=== PATIENT | female | born 1995 | race American Indian/Alaskan Native ===

== ENCOUNTER 2019-07-18 11:49 | Emergency (ER) | payer MEDICAID ==
[2019-07-18 12:17] LABS: Eosinophils % (Auto) 0.9 % (0.0-4.3); Monocytes # (Auto) 0.3 K/mm3 (0.0-0.8); Monocytes % (Auto) 5.2 % (0.0-7.3)
[2019-07-18 12:27] LABS: Hematocrit 41.8 % (30.3-42.9); Hemoglobin 13.6 gm/dl (10.1-14.3); Mean Corpuscular Volume 70 fl (79-97); Red Blood Count 5.94 M/mm3 (3.65-5.03)
[2019-07-18 12:28] LABS: Lymphocytes % (Auto) 28.1 % (13.4-35.0); Mean Corpuscular HGB Conc 32 % (30-34); Red Cell Distribution Width 17.6 % (13.2-15.2)
[2019-07-18 12:31] LABS: Basophils % (Auto) 0.3 % (0.0-1.8); Lymphocytes # (Auto) 1.3 K/mm3 (1.2-5.4)
[2019-07-18 12:42] LABS: Alanine Aminotransferase 8 units/L (7-56); Albumin 4.3 g/dL (3.9-5); BUN/Creatinine Ratio 11; Blood Urea Nitrogen 10 mg/dL (7-17); Calcium 9.2 mg/dL (8.4-10.2); Hemolysis Index 3
--- NOTE | 2019-07-18 13:05 | Emergency Department Report ---
<BERNY DOMINGUEZ - Last Filed: 07/18/19 19:54> ED Abdominal Pain HPI - General Chief Complaint: Abdominal Pain Stated Complaint: ABD PAIN Time Seen by Provider: 07/18/19 13:02 - Related Data Previous Rx's Medication Instructions Recorded Last Taken Type Acetaminophen [Non-Aspirin Extra 500 mg PO Q6HR PRN #30 tablet 07/18/19 Unknown Rx Strength] Ibuprofen [Motrin] 600 mg PO Q8H PRN #30 tablet 07/18/19 Unknown Rx Sulfamethoxazole/Trimethoprim 1 each PO BID 10 Days #20 tablet 07/18/19 Unknown Rx [Bactrim DS TAB] Allergies Allergy/AdvReac Type Severity Reaction Status Date / Time No Known Allergies Allergy Verified 07/18/19 11:58 ED Past Medical Hx - Medications Home Medications: Home Medications Medication Instructions Recorded Confirmed Last Taken Type Acetaminophen [Non-Aspirin Extra 500 mg PO Q6HR PRN #30 tablet 07/18/19 Unknown Rx Strength] Ibuprofen [Motrin] 600 mg PO Q8H PRN #30 tablet 07/18/19 Unknown Rx Sulfamethoxazole/Trimethoprim 1 each PO BID 10 Days #20 tablet 07/18/19 Unknown Rx [Bactrim DS TAB] ED Course - Reevaluation(s) Reevaluation #2: 07/18/19 19:55 The patient is reassessed by myself. The patient is not in any acute distress at this time. Her abdomen is soft and benign, with no rebound, guarding or peritoneal signs. During her abdominal examination, the patient smiles, laughs and giggles. The patient does not have any umbilical or lower abdominal induration at this time. Urinalysis is reviewed and appreciated. The patient does not endorse any irritative or obstructive urinary symptoms to myself. Counseled patient we would discharge with supportive medications, she may follow up as an outpatient primary care doctor. The patient verbalizes understanding. ED Medical Decision Making - Lab Data Result diagrams: 07/18/19 12:04 07/18/19 12:04 Vital Signs 07/18/19 07/18/19 07/18/19 12:01 12:04 13:05 Temperature 98 F Pulse Rate 69 72 Respiratory 16 16 18 Rate Blood Pressure 128/81 114/72 [Left] O2 Sat by Pulse 100 99 Oximetry 07/18/19 07/18/19 07/18/19 14:30 15:34 18:30 Temperature Pulse Rate 69 75 Respiratory 18 18 Rate Blood Pressure 113/67 110/64 102/60 [Left] O2 Sat by Pulse 99 Oximetry Labs 07/18/19 07/18/19 07/18/19 12:04 12:04 12:04 WBC 4.8 RBC 5.94 H Hgb 13.6 Hct 41.8 MCV 70 L MCH 23 L MCHC 32 RDW 17.6 H Plt Count 114 L Lymph % (Auto) 28.1 Camp % (Auto) 5.2 Eos % (Auto) 0.9 Baso % (Auto) 0.3 Lymph # 1.3 Camp # 0.3 Eos # 0.0 Baso # 0.0 Seg Neutrophils % 65.5 Seg Neutrophils # 3.1 Sodium 142 Potassium 4.0 Chloride 103.9 Carbon Dioxide 26 Anion Gap 16 BUN 10 Creatinine 0.9 Estimated GFR > 60 BUN/Creatinine Ratio 11 Glucose 94 Calcium 9.2 Total Bilirubin 0.50 AST 12 ALT 8 Alkaline Phosphatase 52 Total Protein 7.6 Albumin 4.3 Albumin/Globulin Ratio 1.3 HCG, Qual Negative Urine Color Urine Turbidity Urine pH Ur Specific [place] Urine Protein Urine Glucose (UA) Urine Ketones Urine Blood Urine Nitrite Urine Bilirubin Urine Urobilinogen Ur Leukocyte Esterase Urine WBC (Auto) Urine RBC (Auto) U Epithel Cells (Auto) Urine Mucus 07/18/19 13:03 WBC RBC Hgb Hct MCV MCH MCHC RDW Plt Count Lymph % (Auto) Camp % (Auto) Eos % (Auto) Baso % (Auto) Lymph # [place] # Eos # Baso # Seg Neutrophils % Seg Neutrophils # Sodium Potassium Chloride Carbon Dioxide Anion Gap BUN Creatinine Estimated GFR BUN/Creatinine Ratio Glucose Calcium Total Bilirubin AST ALT Alkaline Phosphatase Total Protein Albumin Albumin/Globulin Ratio HCG, Qual Urine Color Yellow Urine Turbidity Slightly-cloudy Urine pH 7.0 Ur Specific [place] 1.019 Urine Protein <15 mg/dl Urine Glucose (UA) Neg Urine Ketones Neg Urine Blood Neg Urine Nitrite Neg Urine Bilirubin Neg Urine Urobilinogen < 2.0 Ur Leukocyte Esterase Tr Urine WBC (Auto) 14.0 H Urine RBC (Auto) 3.0 U Epithel Cells (Auto) 7.0 Urine Mucus Few - Radiology Data Radiology results: report reviewed, image reviewed Patient: WILEY PAULSON MR#: [id number] : 1995 Acct:[id number] Age/Sex: 24 / F ADM Date: 07/18/19 Loc: ED Attending Dr: Ordering Physician: CELESTINE NUNEZ III, MD Date of Service: 07/18/19 Procedure(s): CT abdomen pelvis wo con Accession Number(s): [id number] cc: GINA NUNEZ III, MD . CT of the abdomen and pelvis without contrast INDICATION: Intermittent abdominal pain x1 year COMPARISON: None FINDINGS: Lung bases are clear. The liver, spleen, pancreas, adrenal glands and kidneys show no definite abnormalities except for very small 1 mm stone in the upper pole the left kidney which is nonobstructing. No definite gallbladder or biliary tree abnormality. No fluid or adenopathy in the upper abdomen. CT of the pelvis shows normal appendix. No uterine or adnexal masses. No pelvic fluid or adenopathy. No diverticulosis or diverticulitis. No hernia or bowel obstruction. IMPRESSION: Negative study. Automated exposure control was utilized to diminish radiation dose. Signer Name: Iftikhar Beaver MD Signed: 07/18/2019 6:35 PM Workstation Name: [email or web address] ED Disposition Clinical Impression: Abdominal pain Qualifiers: Abdominal location: periumbilical Qualified Code(s): R10.33 - Periumbilical pain UTI (urinary tract infection) Qualifiers: Urinary tract infection type: acute cystitis Hematuria presence: with hematuria Qualified Code(s): N30.01 - Acute cystitis with hematuria Disposition: - TO HOME OR SELFCARE Is pt being admited?: No Does the pt Need Aspirin: No Condition: Stable Instructions: Urinary Tract Infection in Women (ED), Abdominal Pain (ED) Additional Instructions: Patient to follow-up with primary care in 2-3 days. Patient to return to ER if condition worsens. Patient to take Tylenol when necessary pain. Patient to rest. Patient increase water. Patient eat regularly. Patient take meds as directed.. Prescriptions: Sulfamethoxazole/Trimethoprim [Bactrim DS TAB] 1 each PO BID 10 Days #20 tablet Ibuprofen [Motrin] 600 mg PO Q8H PRN #30 tablet PRN Reason: Pain Acetaminophen [Non-Aspirin Extra Strength] 500 mg PO Q6HR PRN #30 tablet PRN Reason: Pain , Severe (7-10) Referrals: Parag VAZ [Other] - 2-3 Days <MAYRA COTTONGINA - Last Filed: 07/19/19 14:25> ED Abdominal Pain HPI - General Source: patient, EMS Mode of arrival: Stretcher Limitations: No Limitations - History of Present Illness Initial Comments: She has a 24-year-old female that presents emergency room with severe abdominal pain. Patient states her abdominal pain is a 9 out of 10. Patient states worsening. Patient states it's in the periumbilical and umbilical region. Patient states it's worse with palpation and movement patient states the pain is better with rest. Patient states she is having nausea times. Patient denies vomiting. Patient denies vaginal discharge. Patient denies chance of . Patient states her LMP was in May. Patient denies diarrhea. Patient denies fever and chills. MD Complaint: abdominal pain -: Sudden Location: periumbilical Radiation: none Migration to: no migration Severity: severe Severity scale (0 -10): 9 Quality: stabbing Consistency: constant Improves With: rest Worsens With: movement Associated Symptoms: denies other symptoms, nausea. denies: vomiting, diarrhea, fever, chills, constipation, dysuria, hematemesis, hematochezia, melena, hematuria, anorexia, syncope ED Review of Systems ROS: Stated complaint: ABD PAIN Other details as noted in HPI Constitutional: denies: chills, fever Eyes: denies: eye pain, eye discharge, vision change ENT: denies: ear pain, throat pain Respiratory: denies: cough, shortness of breath, wheezing Cardiovascular: denies: chest pain, palpitations Endocrine: no symptoms reported Gastrointestinal: abdominal pain, nausea. denies: vomiting, diarrhea Genitourinary: denies: urgency, dysuria, discharge Musculoskeletal: denies: back pain, joint swelling, arthralgia Skin: denies: rash, lesions Neurological: denies: headache, weakness, paresthesias Psychiatric: denies: anxiety, depression Hematological/Lymphatic: denies: easy bleeding, easy bruising ED Past Medical Hx - Past Medical History Previous Medical History?: No - Surgical History Past Surgical History?: No - Family History Family history: no significant - Social History Smoking Status: Never Smoker Substance Use Type: None ED Physical Exam - General Limitations: No Limitations General appearance: alert, in no apparent distress - Head Head exam: Present: atraumatic, normocephalic - Eye Eye exam: Present: normal appearance - ENT ENT exam: Present: mucous membranes moist - Neck Neck exam: Present: normal inspection - Respiratory Respiratory exam: Present: normal lung sounds bilaterally. Absent: respiratory distress - Cardiovascular Cardiovascular Exam: Present: regular rate, normal rhythm. Absent: systolic murmur, diastolic murmur, rubs, gallop - GI/Abdominal GI/Abdominal exam: Present: soft, tenderness (severe umbilical tenderness.), normal bowel sounds - Extremities Exam Extremities exam: Present: normal inspection - Back Exam Back exam: Present: normal inspection - Neurological Exam Neurological exam: Present: alert, oriented X3 - Psychiatric Psychiatric exam: Present: normal affect, normal mood - Skin Skin exam: Present: warm, dry, intact, normal color. Absent: rash ED Course Vital Signs 07/18/19 07/18/19 07/18/19 12:01 12:04 13:05 Temperature 98 F Pulse Rate 69 72 Respiratory 16 16 18 Rate Blood Pressure 128/81 114/72 [Left] O2 Sat by Pulse 100 99 Oximetry 07/18/19 07/18/19 07/18/19 14:30 15:34 18:30 Temperature Pulse Rate 69 75 Respiratory 18 18 Rate Blood Pressure 113/67 110/64 102/60 [Left] O2 Sat by Pulse 99 Oximetry 07/18/19 20:05 Temperature 98.4 F Pulse Rate 65 Respiratory 16 Rate Blood Pressure 116/64 [Left] O2 Sat by Pulse 100 Oximetry - Reevaluation(s) Reevaluation #1: Patient resting in bed. Patient's CT is pending. Patient signed out to night physician, Dr. Dominguez for final disposition. 07/18/19 18:04 ED Medical Decision Making - Lab Data Result diagrams: 07/18/19 12:04 07/18/19 12:04 Critical care attestation.: If time is entered above; I have spent that time in minutes in the direct care of this critically ill patient, excluding procedure time. ED Disposition Is pt being admited?: No Does the pt Need Aspirin: No Time of Disposition: 17:47
[2019-07-18 13:25] LABS: Bilirubin,Urine NEG (Negative); Blood,Urine NEG (Negative); Color,Urine Yellow (Yellow); Mucus,Urine FEW /HPF; Protein,Urine <15 mg/dL mg/dL (Negative); Urobilinogen,Urine < 2.0 mg/dL (<2.0)
[2019-07-18 13:33] LABS: Platelet Count 114 K/mm3 (140-440)
--- NOTE | 2019-07-18 18:39 | Cat Scan Report ---
. CT of the abdomen and pelvis without contrast INDICATION: Intermittent abdominal pain x1 year COMPARISON: None FINDINGS: Lung bases are clear. The liver, spleen, pancreas, adrenal glands and kidneys show no defin ite abnormalities except for very small 1 mm stone in the upper pole the left kidney which is nonobst ructing. No definite gallbladder or biliary tree abnormality. No fluid or adenopathy in the upper abd omen. CT of the pelvis shows normal appendix. No uterine or adnexal masses. No pelvic fluid or adenopathy. No diverticulosis or diverticulitis. No hernia or bowel obstruction. IMPRESSION: Negative study. Automated exposure control was utilized to diminish radiation dose. Signer Name: Iftikhar Beaver MD Signed: 07/18/2019 6:35 PM Workstation Name: [id number]
[2019-07-18 20:06] VITALS: BP 116/64
== END 2019-07-18 20:07 | disposition home or self-care (01) ==
LOC: ED 11:49
DX: N39.0 Urinary tract infection, site not specified (principal); Z79.899 Other long term (current) drug therapy
CPT/HCPCS: 36415; 74176; 80053; 81001; 84703; 85025; 87086; 99285